=== PATIENT | male | born 1995 | race Caucasian/White ===

== ENCOUNTER 2024-01-22 15:49 | Emergency (ER) | payer OTHER, SELFPAY ==
--- NOTE | ~2024-01-22 | XR_ITS ---
EXAMINATION: XR finger 3rd LT min 2V DATE: 01/22/2024 16:11 INDICATION: Left hand third digit laceration. TECHNIQUE: 3 views of left hand third digit were obtained. COMPARISON: None. FINDINGS: There is hyperextension at third proximal interphalangeal joint. No fracture. Joint spaces are normal. No radiopaque foreign body. IMPRESSION: 1. No fracture or radiopaque foreign body. Reviewed, dictated and finalized at location E.
[2024-01-22 15:55] VITALS: BP 155/92; PULSE 86; RESP 16; TEMP 36.8; O2SAT 98
[2024-01-22] MEDS: TETANUS,DIPHTHERIA,AC PERTUSSIS ADULT (0.5 ML) BOOSTRIX IM (16:36)
--- NOTE | 2024-01-22 17:31 | ED.WOUNDLAC ---
HPI - Wound/Laceration General Chief Complaint: Wound/Laceration Stated Complaint: knife vs finger Time Seen by Provider: 01/22/24 16:23 History of Present Illness HPI narrative: Patient is a 28-year-old male who is right-handed who presents ER after cutting his left 3rd digit while cutting the heads off of [place] game hens. Bleeding controlled. Last tetanus shot was 9-10 years ago. No numbness or tingling. Has full range of motion. Works delivering 5 gal water jugs. Related Data Allergies Allergy/AdvReac Type Severity Reaction Status Date / Time nickel Allergy Mild Hives Verified 01/22/24 15:57 Review of Systems Constitutional: Constitutional: Reports no additional constitutional complaints Musculoskeletal: Musculoskeletal: Reports no additional musculoskeletal complaints Integumentary/Breasts: Skin/Breast: Reports system reviewed and no additional complaints, except as docu Neurologic: Reports system reviewed and no additional complaints, except as documented PMFSH Past Medical History Medical History (Updated 01/22/24 @ 18:06 by Abner Rivas MD) Healthy adult male Surgical History Surgical History (Updated 01/22/24 @ 18:06 by Abner Rivas MD) No pertinent past surgical history Exam Narrative: GENERAL: Well-appearing, well-nourished, and in no acute distress. HEAD: Normocephalic, atraumatic. ENT: Mucous membranes moist. CHEST: Clear to auscultation. No respiratory distress. HEART: Regular rate and rhythm. Normal peripheral pulses. EXTREMITIES: Left hand with laceration over the radial aspect of the 3rd digit from the PIP of the to the fat pad of the palm of the distal phalanx. Flap type laceration. No tendon involvement. Neurovascularly intact. Normal strength and range of motion with isolation of each joint of the 3rd digit of the left hand. sharp and soft touch intact in the affected digit. Otherwise normal extremity exam of the upper extremities. SKIN: Warm, dry, no rash. NEURO: Alert and oriented x3. PSYCH: Normal mood and affect. Course Course Emergency Course: Wound irrigated, then soaked in betadine/saline solution. Tetanus updated, wound repaired, return precautions given. D/c home. Vital Signs Vital signs: Vital Signs Temperature 98.2 F 01/22/24 15:55 Pulse Rate 86 01/22/24 15:55 Respiratory Rate 16 01/22/24 15:55 Blood Pressure 155/92 H 01/22/24 15:55 Pulse Oximetry 98 01/22/24 15:55 Temperature 98.2 F 01/22/24 15:55 Pulse Rate 70 01/22/24 17:51 Respiratory Rate 18 01/22/24 17:51 Blood Pressure 141/87 H 01/22/24 17:51 Pulse Oximetry 100 01/22/24 17:51 Procedures Laceration Laceration 1: Date: 01/22/24 Time: 17:31 Site: other (3rd digit) Side (If applicable): left Size (cm): 7.5 Description: flap Depth: simple, single layer Local Anesthetic: lidocaine 1% and with epi Amount of anesthesia used (mL): 2 Pre-repair: wound explored, irrigated extensively and deep structures intact ====== Skin Level ====== Skin layer closed with: nylon Size (cm): 5-0 Number of sutures: 12 Technique: simple, interrupted ====== Subcutaneous Layer ====== ====== Muscle Layer ====== ====== Tendon Layer ====== MDM - Wound/Laceration Imaging Data Radiologist's impression: ITS Impressions Finger X-Ray 01/22/24 16:14 IMPRESSION: 1. No fracture or radiopaque foreign body. Discharge Plan Discharge Clinical Impression: Laceration of finger of left hand Patient Disposition: Home, Self-Care Condition: Stable Instructions: Antibiotic Form, Care For Your Stitches (ED), Laceration (ED) Additional Instructions: Change her dressing daily and inspect for infection. Return to the ER if the wound is draining pus, your finger is red and hot, you have fever 100.4? F, or you have additional concerns.
[2024-01-22 17:51] VITALS: BP 141/87; PULSE 70; RESP 18; O2SAT 100
== END 2024-01-22 18:13 | disposition home or self-care (01) ==
PROVIDERS: Emergency Provider Emergency Medicine
DX: S61.213A Laceration without foreign body of left middle finger without damage to nail, initial encounter (principal); Z23 Encounter for immunization; W26.0XXA Contact with knife, initial encounter
CPT/HCPCS: 12004; 73140; 90471; 90715; 99283